=== PATIENT | female | born 1990 | race Caucasian/White ===

== ENCOUNTER 2020-04-09 15:00 | Emergency (ER) | payer OTHER ==
[~2020-04-09] VITALS: Ht 172.7 cm; Wt 61.5 kg
[2020-04-09] MEDS ORDERED: LIDOCAINE 1%, 10ML INFIL ONE (16:00)
[2020-04-09] MEDS ORDERED: DIPH,PERTUSS(ACELL),TET VAC/PF 0.5 ML IM-VACC ONE ×2 (16:00→19:30)
[2020-04-09] MEDS ORDERED: LIDOCAINE-MPF 1%, 5ML ONE ×2 (19:30→19:51)
--- NOTE | 2020-04-09 19:35 | NUR ---
ASSUMED CARE OF PT AT THIS TIME LOBBY. FIRST CONTACT WITH PT. 29 Y/O F PRESENTS WITH LEFT KNEE LAC, DRESSING IN PLACE, BLEEDING CONTROLLED. PT STATES "I WAS RUNNING AT WORK AND I SLIPPED AND FELL, PERFECTLY HIT THIS METAL EDGE THAT WAS ON GROUND CUT KNEE OPEN AND CAME STRAIGHT HERE." DENIES HITTING HEAD AND ANY LOC WITH FALL. DR. SINHA AT BEDSIDE FOR EVALUATION, MD ADMIN LIDO TO LAC AT THIS TIME. VSS. CALL LIGHT IN REACH. FALL PRECAUTIONS IN PLACE. A&OX4. CMS INTACT. +ROM WITH PAIN REPORTED. RATES PAIN 8/10 WITH MOVEMENT, 6/10 WITH REST.
[2020-04-09 19:45] VITALS: BP 127/78
[2020-04-09] MEDS ORDERED: IBUPROFEN 600 MG TABLET ONE (19:45)
[2020-04-09] MEDS ORDERED: HYDROcodone/APAP 5/325 TABLET ONE (19:46)
--- NOTE | 2020-04-09 19:52 | NUR ---
GLEN HOLCOMB AT BEDSIDE FOR LAC REPAIR/SUTURE PLACEMENT
[2020-04-09] MEDS ORDERED: HYDROcodone/APAP 5/325 TABLET PO ONE (20:00)
[2020-04-09] MEDS ORDERED: IBUPROFEN 600 MG TABLET PO ONE (20:00)
--- NOTE | 2020-04-09 20:09 | NUR ---
OPTOMETRIC COORDINATOR AT BEDSIDE WITH GLEN HOLCOMB FOR SUTURE REPAIR AND DRESSING PLACEMENT. PT COMPLETED WORKERS COMP PAPERS PER HER REQUEST, GIVEN TO PROVIDER TO BE COMPLETED BY [facility].
[2020-04-09] MEDS ORDERED: NEOSPORIN OINT. PKT 1 PACKET ONE (20:15)
--- NOTE | 2020-04-09 20:30 | NUR ---
DRESSING CDI LEFT KNEE. SHIV WRAP/KNEE IMMBOLIZER APPLIED BY EMERSON VALENTINE. CMS INTACT. PEDAL PULSE NORMAL AND STRONG. GIVEN INSTRUCTION AND DEMONSTRATION ON CRUTCH USE, VERBALIZED UNDERSTANDING, RETURN DEMONSTRATED PROPER USE. MAGDA LAWSON TO BEDSIDE TO ASSIST WITH PT D/C PER MD ORDERS. WORK COMP PAPERS TO REG STAFF FROM ERP.
== END 2020-04-09 20:42 | disposition home or self-care (01) ==
LOC: ED 16:00
DX: S81.012A Laceration without foreign body, left knee, initial encounter (principal); W26.9XXA Contact with unspecified sharp object(s), initial encounter; Y93.89 Activity, other specified; Y92.89 Other specified places as the place of occurrence of the external cause; Y99.8 Other external cause status
CPT/HCPCS: 12002; 90471; 90715; 99283